=== PATIENT | female | born 1960 | race Caucasian/White ===

== ENCOUNTER 2016-10-01 16:36 | Emergency (ER) | payer OTHER ==
[2016-10-01 17:14] LABS: HEMOGLOBIN 14.2 gm/dl (12.3-15.3); RED BLOOD COUNT 4.5 M/UL (4.00-5.10)
[2016-10-01 17:35] LABS: BUN/CREATININE RATIO 19 (0-10)
== END 2016-10-01 21:38 | disposition home or self-care (01) ==
LOC: ER1 16:36
PROVIDERS: Emergency Medicine
DX: J44.9 Chronic obstructive pulmonary disease, unspecified (principal); Z79.82 Long term (current) use of aspirin; Z79.899 Other long term (current) drug therapy
CPT/HCPCS: 36415; 71010; 71275; 80053; 82550; 82553; 83874; 84484; 85025; 87081; 87880; 93005; 94664; 96374; 99285; J2930; J7050; Q9963

== ENCOUNTER → 2020-09-18 | Outpatient (CLI) | payer OTHER ==
[~2020-09-18] MED LIST: AMLODIPINE BES2.5 MG PO; AMLODIPINE BESYL5 MG PO; ANORO ELLIPTA1 EACH INH; ASPIRIN EC81 MG PO; ATORVASTATIN CA10 MG PO; ATORVASTATIN CA40 MG PO; BUSPIRONE HCL15 MG PO; BUSPIRONE HCL5 MG PO; CLARITIN10 MG PO; CYANOCOBAL1000 MCG/1 INJ; DICLOFENAC GEL TD; ECOTRIN81 MG PO; EFFEXOR XR 150150 MG PO; FUROSEMIDE20 MG PO; HYDROCODON-ACE1 EAC4 PO; HYDROXYZINE PAM25 MG PO; IBUPROFEN400 MG PO; IBUPROFEN600 MG PO; IMDUR ER TAB 3030 MG PO; ISOSORBIDE MONO30 MG PO; LEVOFLOXACIN500 MG PO; LEVOTHYROXINE200 MC1 PO; LEVOXYL50 MCG PO; LISINOPRIL10 MG PO; LISINOPRIL5 MG PO; LOVASTATIN40 MG PO; MELOXICAM15 MG PO; MONTELUKAST SOD10 MG PO; NEURONTIN100 MG PO; NITROGLYCERIN0.4 MG SL; PANTOPRAZOLE SO40 MG PO; PROTONIX 40 MG40 M1 PO; PROTONIX40 MG PO; PROVENTIL HFA6.7 GM INH; VENTOLIN HFA 66.7 GM INH; VITAMIN D21250 MCG PO
== END ==
LOC: HEART 5 08:00
DX: I25.10 Atherosclerotic heart disease of native coronary artery without angina pectoris (principal); R07.9 Chest pain, unspecified
CPT/HCPCS: 78452; 93306; A9502; J2785

== ENCOUNTER → 2020-09-22 | Outpatient (CLI) | payer OTHER | LOC: EDSTATUS 07:47 → LAB 22:01 | DX: Z11.52 Encounter for screening for COVID-19 (principal); Z20.822 Contact with and (suspected) exposure to COVID-19 | CPT/HCPCS: U0002 ==

== ENCOUNTER → 2020-09-24 | Outpatient (CLI) | payer OTHER | LOC: CATH 13:00 | DX: Z45.018 Encounter for adjustment and management of other part of cardiac pacemaker (principal); I10 Essential (primary) hypertension; I25.119 Atherosclerotic heart disease of native coronary artery with unspecified angina pectoris; I49.5 Sick sinus syndrome; E78.5 Hyperlipidemia, unspecified; J44.9 Chronic obstructive pulmonary disease, unspecified; F32.9 Major depressive disorder, single episode, unspecified; K21.9 Gastro-esophageal reflux disease without esophagitis; E03.9 Hypothyroidism, unspecified; Z87.891 Personal history of nicotine dependence; Z95.1 Presence of aortocoronary bypass graft; Z79.82 Long term (current) use of aspirin; Z79.1 Long term (current) use of non-steroidal anti-inflammatories (NSAID); Z79.899 Other long term (current) drug therapy | CPT/HCPCS: 33213; 71045; 99152; 99153; C1785; J1200; J2250; J3010; J3370; J7040; J7050 ==

== ENCOUNTER 2021-01-06 08:43 | Emergency (ER) | payer OTHER ==
[~2021-01-06] VITALS: Ht 160 cm; Wt 90.7 kg
[2021-01-06 11:08] LABS: HEMOGLOBIN 13.9 gm/dl (12.3-15.3); RED BLOOD COUNT 4.37 M/UL (4.00-5.10); WHITE BLOOD COUNT 8.1 K/UL (4.5-11.0)
[2021-01-06 11:57] LABS: BUN/CREATININE RATIO 16 (0-10)
[2021-01-06] MEDS ORDERED: DECADRON6 MG PO (14:07)
[2021-01-06] MEDS ORDERED: MUCINEX DM ER1 EACH PO (14:09)
== END 2021-01-06 14:57 | disposition home or self-care (01) ==
LOC: ER1 08:43
PROVIDERS: Physician Assistant
DX: Z23 Encounter for immunization (principal); U07.1 COVID-19; J44.9 Chronic obstructive pulmonary disease, unspecified; E03.9 Hypothyroidism, unspecified; I51.9 Heart disease, unspecified
CPT/HCPCS: 36600; 71045; 80053; 82550; 82553; 82803; 83874; 84484; 85025; 96374; 99285; J1100; M0243